=== PATIENT | male | born 1990 | race Caucasian/White ===

== ENCOUNTER → 2017-08-31 | Outpatient (CLI) | payer OTHER | LOC: MHCPAIN 14:47 | DX: G89.29 Other chronic pain (principal); M47.24 Other spondylosis with radiculopathy, thoracic region | CPT/HCPCS: G0463 ==

== ENCOUNTER → 2017-11-24 | Outpatient (CLI) | payer OTHER | LOC: MHCPAIN 14:11 | DX: G89.29 Other chronic pain (principal); M54.14 Radiculopathy, thoracic region; M47.814 Spondylosis without myelopathy or radiculopathy, thoracic region | CPT/HCPCS: G0463 ==